=== PATIENT | female | born 1945 | race Caucasian/White ===

== ENCOUNTER → 2016-07-28 | Outpatient (CLI) | payer MEDICARE, OTHER ==
[~2016-07-28] MED LIST: AUGMENTIN875 MG PO; CARVEDILOL25 MG PO; CHILDREN'S ASPI81 MG PO; FARXIGA10 MG PO; HUMALOG KW200 UNIT/1 SQ; LASIX DPS40 MG OP; LEVEMIR100 UNIT/1 SQ; LEXAPRO10 MG PO; LIPITOR20 MG PO; NEURONTIN DPS300 MG PO; NORVASC5 MG PO; PREMARIN0.625 MG TP; PRILOSEC20 MG PO; SYNTHROID88 MCG PO; TIZANIDINE HCL4 M1 PO; ULTRAM DPS50 MG PO; VITAMIN B12-FO1 EACH PO; ZESTRIL DPS5 MG PO
== END | disposition home or self-care (01) ==
LOC: RAD.S 09:49
DX: Z12.31 Encounter for screening mammogram for malignant neoplasm of breast (principal)

== ENCOUNTER → 2016-08-02 | Outpatient (CLI) | payer MEDICARE, OTHER | END | disposition home or self-care (01) | LOC: RAD.S 13:14 | DX: R92.8 Other abnormal and inconclusive findings on diagnostic imaging of breast (principal); N63 Unspecified lump in breast ==